=== PATIENT | male | born 1945 | race Caucasian/White ===

== ENCOUNTER → 2017-10-21 | Day surgery (SDC) | payer OTHER, MEDICARE ==
[~2017-10-21] VITALS: Ht 177.8 cm; Wt 72.6 kg
[~2017-10-21] MED LIST: ATORVASTATIN CA20 M1 PO; CILOSTAZOL100 M1 PO; GARLIC OIL1000 M1 PO; MAGNESIUM250 M2 PO; METOPROLOL SUCC25 M1 PO; VITAMIN C500 M6 PO; VITAMIN D400 UNI2 PO
--- NOTE | 2017-10-21 08:34 | Operative Report ---
Operative/Inv Procedure Report Surgery Date: 10/21/17 Name of Procedure: Cataract extraction lens implantation left eye Pre-Operative Diagnosis: Age-related cataract left eye 20/30 vision 20/50 glare vision Post-Operative Diagnosis: Same Estimated Blood Loss: none Surgeon/Swimming Pool Maintenance: Alex REYES,Adilson Martinez Anesthesia: local monitored anesthesi Complications: None Operative/Procedure Note Note: The patient was brought to the operating room standard monitoring equipment was attached the patient was prepped and draped in the usual fashion for intraocular surgery. A lid speculum was placed to retract the lids. The case was begun by making a temporal incision with a 2.4 mm keratome. The eye was stabilized with a Cash ring during this incision. 1 mL of non-preserved lidocaine was introduced into the anterior chamber to provide anesthesia. The anterior chamber was then filled and deepened with viscoelastic. A curvilinear capsulorrhexis was achieved using a 30-gauge needle and is a cystotome and capsulorrhexis was finished using a Utrata forceps. A second or paracentesis incision was made temporally with a 1 mm MVR blade. The lens was then hydrodissected with balanced salt solution and found to be rotatable. The lens was emulsified using phacoemulsification and a modified four-quadrant cracking technique. The residual cortical material was removed using automated irrigation and aspiration and as much of the anterior capsular rim was cleaned as well as possible. The posterior capsule was cleaned first with the automated machine on a low setting and then manually with a Osbaldo squeegee. The capsular bag was deepened with viscoelastic. The lens a Technis 1 19.5 Diopter placed into the bag under direct visualization and rotated so that the haptics were at 12 and 6:00. Viscoelastic was then removed from the eye by flushing it out and then by automated irrigation and aspiration. The eye was pressurized to a normal tone. 1/10 of a cc of vancomycin solution was introduced into the anterior chamber to provide antibiotic prophylaxis. The wounds were sealed by hydrating the stroma adjacent to them and the eye was left at a proper tone after the wounds were checked and found not to be leaking. The lid speculum was removed from the orbit. Antibiotic and steroid drops were placed on the eye and then the eye was shielded. Monitoring equipment was removed from the patient and the patient was removed from the operative suite to the holding area. The patient tolerated the procedure well and will be seen in the office tomorrow.
== END ==
LOC: STS 01:20
DX: H25.9 Unspecified age-related cataract (principal); I25.10 Atherosclerotic heart disease of native coronary artery without angina pectoris; I71.4 Abdominal aortic aneurysm, without rupture; I25.2 Old myocardial infarction; Z79.82 Long term (current) use of aspirin
CPT/HCPCS: J2250; V2632

== ENCOUNTER 2017-11-17 01:11 | Inpatient (IN) | payer OTHER, MEDICARE ==
[~2017-11-17] VITALS: Ht 175.3 cm; Wt 77.7 kg
--- NOTE | 2017-11-17 10:07 | Operative Report ---
Operative/Inv Procedure Report Surgery Date: 11/17/17 Name of Procedure: Percurtaneous EVAR (23 mm) [place] devide, bilateral ultrasound guidance for vascular access, bilateral closure device, aortography for placement of endovascular AAA device with 2 docking limbs, bilateral nonselective aortic catheterization Pre-Operative Diagnosis: 5.5 cm AAA Post-Operative Diagnosis: same Estimated Blood Loss: less than 50ml Surgeon/Wool Grower: Mati Javed MD Anesthesia: general endotracheal tube Complications: None Condition: Stable to PACU Operative Indication: This is a 71-year-old male with a history of a 5.5 cm infrarenal aortic aneurysm. This has been followed conservatively has increased in size recently. Risks benefits and alternatives explained to patient including limb loss, arterial injury, renal failure, aortic rupture and . He decide to proceed with intervention. Operative/Procedure Note Note: Patient was transported to the operating room and laid supine on the table. Adequate anesthesia, IV lines, A-line, a timeout was held in accordance with [facility] policy. Please note a second attending surgeon was necessary due to complexity of this case and lack of a surgical elastic knitter or PA for assistance. The bilateral groins were selected for access. Using ultrasound guidance bilateral simultaneous common femoral punctures ensued. Artery was noted to be patent. A micropuncture wire and catheter were used for access and bilateral 8 [place] sheaths were placed. Four Proglide sutures were placed in the area for hemostasis at the conclusion of the case. The patient was given 5000 units of heparin and aortography was performed. This demonstrates the known aneurysm which is 5.5 cm. The renal arteries are patent. The internal iliac arteries are patent and the external iliac arteries are patent but not well-opacified due to the sheath placement. An 16 [place] sheath was placed on the right and a 12 [place] sheath placed on the left. A pigtail catheter was then used to perform aortography. This was used to maru the level of the renal arteries. A [place] C3 endovascular stent graft 23 x 12 x 12 cm is then placed over a stiff wire into the area of the infrarenal aorta. The contralateral gate was cannulated. A 12 x 10 cm iliac extension limb was then placed on the left. Aortography after placement of this limb demonstrated a type IB endoleak. Therefore a 12 x 7 cm graft was extended on the left side. Completion aortography demonstrates in-line flow through the segment and patent bilateral renal and internal iliac arteries. There was no type I to or 3 endoleak noted. The previous endoleak was eradicated. The catheter sheath and wire systems with then removed. The provides were secured and placed appropriately. Hemostasis was achieved with the above device and 5 minutes of manual compression. Patient tolerated the procedure well was transported to the recovery area stable extubated awake and alert. CC: Russell Whyte MD
--- NOTE | 2017-11-17 10:36 | Admission Core Measures ---
Acute Coronary Syndrome (CM) ACS Core Measures Acute Coronary Syndrome Diagnosis No Congestive Heart Failure (NEW) CHF Core Measures Congestive Heart Failure Diagnosis No Cerebrovascular Accident (NEW) CVA Core Measures CVA/TIA Diagnosis No Venous Thromboembolism VTE Core Poppy (View Protocol) VTE Risk Factors Surgery No Mechanical VTE Prophylaxis d/t N/A MechProphylax Ordered No VTE Pharm Prophylaxis d/t Surgical Contraindication Problem List As ranked by this Provider includes Assessment & Plan 1. H/O endovascular stent graft for abdominal aortic aneurysm 2. AAA (abdominal aortic aneurysm) HOME MEDS Home Med List Ascorbate Calcium (Vitamin C) 500 MG TABLET 1 TAB PO DAILY SUPPLEMENT ( Reported) Atorvastatin Calcium 20 MG TABLET 1 TAB PO DAILY CHOLESTEROL (Reported) Cholecalciferol (Vitamin D3) (Vitamin D) 400 UNIT TABLET 1 TAB PO DAILY SUPPLEMENT (Reported) Cilostazol 100 MG TABLET 1 TAB PO BID CIRCULATION (Reported) Garlic (Garlic Oil) 1,000 MG CAPSULE 1 CAP PO PRN SUPPLEMENT (Reported) Magnesium Oxide (Magnesium) 250 MG TABLET 1 TAB PO DAILY SUPPLEMENT (Reported ) Metoprolol Succinate 25 MG TAB 1 TAB PO DAILY HEART/BP (Reported)
--- NOTE | 2017-11-17 11:41 | RADIOLOGY REPORT ---
EXAMINATION: CR ABDOMEN/INTRAOPERATIVE FLUOROSCOPY CLINICAL INDICATION: Abdominal aortic aneurysm repair. COMPARISON: CT angiogram dated 10/03/2017. TECHNIQUE/FINDINGS: Fluoroscopic equipment was dedicated to the operating room for the performance of an intraoperative procedure. Several (7) spot films and 7 cine fluoroscopy runs were acquired and are archived in PACS. Please refer to operative notes for procedural detail. FLUOROSCOPY TIME: 9 minutes 49 seconds. IMPRESSION: Administrative dictation for intraoperative fluoroscopy and image archiving in PACS. Please refer to operative notes for details.
[2017-11-17 12:29] VITALS: BP 116/76
--- NOTE | 2017-11-17 13:01 | PN- Vascular Surgery ---
Subjective Subjective: POST-OP NOTE No complaints. Eager to eat food. No nausea. Lied flat for 4 hours. On bedrest until the morning, which was reiterated to him. He denies pain. No dizziness. No shortness of breath. No chest pains. Due to void this afternoon. He anticipates discharge to home tomorrow. Objective Vital Signs and I&Os Vital Signs Date Time Temp Pulse Resp B/P B/P Pulse O2 O2 Flow FiO2 Mean Ox Delivery Rate 11/17 1229 98.4 86 18 116/76 93 Room Air Room Air Intake & Output 11/17 1600 11/17 0800 11/17 0000 11/16 1600 11/16 0800 11/16 0000 Intake Total Output Total Balance Patient 171 lb Weight Weight Bed scale Measurement Method Physical Exam: General - alert & oriented x 3. comfortable. no acute distress. Lungs - clear bilaterally. no w/r/r. Cardiac - s1s2. reg. Abdomen - soft. nontender. Extremities - warm bilaterally. groin dressings c/d/i. no hematomas. feet warm. dopplerable PT signals bilaterally. nvi. Current Medications: Current Medications Sig/Debi Start time Last Medication Dose Route Stop Time Status Admin Acetaminophen 1,000 MG Q6H 11/17 1300 AC IV Atorvastatin Calcium 20 MG 1700 11/18 1700 DC PO Atorvastatin Calcium 20 MG 1700 11/18 1700 AC PO Cefazolin Sodium 2,000 MG IQ8 11/17 1600 UNVr IV 11/18 0001 Cilostazol 100 MG BID 11/18 0900 AC PO Cilostazol 100 MG BID 11/17 2100 DC PO Metoprolol Succinate 25 MG DAILY 11/18 0900 DC PO Metoprolol Succinate 25 MG DAILY 11/18 0900 AC PO Ondansetron HCl 4 MG Q6P PRN 11/17 1230 AC IV Oxycodone HCl 5 MG Q6P PRN 11/17 1030 AC PO Oxycodone HCl 10 MG Q6P PRN 11/17 1030 AC PO Sodium Chloride 1,000 ML Q13H 11/17 1230 AC IV Assessment/Plan Assessment/Plan This 71 year old white male with hx cad / mi s/p ptca, htn, hx dvt, hx L popliteal artery aneurysm, pvd, hyperlipidemia, is POD#0 s/p percurtaneous EVAR (23 mm) [place] devide, bilateral ultrasound guidance for vascular access, bilateral closure device, aortography for placement of endovascular AAA device with 2 docking limbs, bilateral nonselective aortic catheterization for 5.5 cm AAA advance diet as tolerated continue iv fluids until he successfully voids ancef x 2 doses post-op pletal BID to resume in the morning completed 4 hours bedrest. to remain on bedrest until the morning home meds re-ordered, including beta cassi neurovascular checks (dopplerable PT signals d/w ) no AM labs needed likely d/c home tomorrow will d/w Problem List: 1. H/O endovascular stent graft for abdominal aortic aneurysm 2. AAA (abdominal aortic aneurysm) Core Measures Venous Thromboembolism VTE Risk Factors Surgery No Mechanical VTE Prophylaxis d/t N/A MechProphylax Ordered No VTE Pharm Prophylaxis d/t Surgical Contraindication
--- NOTE | 2017-11-17 13:12 | Patient Discharge Instructions ---
Discharge Instructions General Discharge Information You were seen/treated for: 5.5 cm AAA You had these procedures: Percurtaneous EVAR (23 mm) [place] devide, bilateral ultrasound guidance for vascular access, bilateral closure device, aortography for placement of endovascular AAA device with 2 docking limbs, bilateral nonselective aortic catheterization Watch for these problems: fever>101.3, increased pain, redness/swelling/drainage, dizziness, shortness of breath, chest pains No bath, but you may shower: Yes Other wound care: ok to remove groin dressings in 24 hours. keep incisions clean & dry. Diet Continue normal diet: Yes Recommended Diet: Regular Activity Full Activity/No Limits: No Activity Self Limited: Yes Pounds, do NOT lift more than: 10 Activity Limited to: Weight bear as tolerated Other activity limits: no heavy lifting. no strenuous activity. Acute Coronary Syndrome Inclusion Criteria At DC or during hospital stay patient has or had the following: ACS DIAGNOSIS No Discharge Core Measures Meds if any: Prescribed or Continued at Discharge Meds if any: NOT Prescribed or Continued at Discharge Congestive Heart Failure Inclusion Criteria At DC or during hospital stay patient has or had the following: CHF DIAGNOSIS No Discharge Core Measures Meds if any: Prescribed or Continued at Discharge Meds if any: NOT Prescribed or Continued at Discharge Cerebrovascular accident Inclusion Criteria At DC or during hospital stay patient has or had the following: CVA/TIA Diagnosis No Discharge Core Measures Meds if any: Prescribed or Continued at Discharge Meds if any: NOT Prescribed or Continued at Discharge Venous thromboembolism Inclusion Criteria VTE Diagnosis No VTE Type NONE VTE Confirmed by (Test) NONE Discharge Core Measures - Per Current guidelines, there needs to be overlap - treatment for the first 5 days of Warfarin therapy. - If discharged on Warfarin prior to 5 days of - overlap therapy, the patient will need to be - assessed for post discharge needs including - *Post discharge parental anticoagulation - *Warfarin and/or parental anticoagulation education - *Follow up date to check INR post discharge At least 5 days overlap therapy as Inpatient No Meds if any: Prescribed or Continued at Discharge Note: Overlap Therapy is Warfarin and Anticoagulant Meds if any: NOT Prescribed or Continued at Discharge
[2017-11-17] MEDS ORDERED: PERCOCET 5-3251 EACH PO (13:13)
--- NOTE | 2017-11-17 13:19 | Surg Short-stay <48hrs Dis Sum ---
Visit Information Visit Dates Admission Date: 11/17/17 Discharge Date: 11/18/17 Surgical Short Stay DC Summary Admission Diagnosis: 5.5 cm AAA Final Diagnosis: same as above, s/p Percurtaneous EVAR (23 mm) [place] devide, bilateral ultrasound guidance for vascular access, bilateral closure device, aortography for placement of endovascular AAA device with 2 docking limbs, bilateral nonselective aortic catheterization Procedure(s): Percurtaneous EVAR (23 mm) [place] devide, bilateral ultrasound guidance for vascular access, bilateral closure device, aortography for placement of endovascular AAA device with 2 docking limbs, bilateral nonselective aortic catheterization Summary/Significant Findings: Electively scheduled Percurtaneous EVAR (23 mm) [place] devide, bilateral ultrasound guidance for vascular access, bilateral closure device, aortography for placement of endovascular AAA device with 2 docking limbs, bilateral nonselective aortic catheterization by on 11/17/17 for pre-operative diagnosis of 5.5 cm AAA. Post-operatively he remained flat for 4 hours, then bedrest until POD#1 morning. His home medication Pletal BID was restarted on post-op day#1. Standard kelsie-operative course, via [facility]. The patient has warm feet, with dopplerable PT signals bilaterally. He will be discharged to home post-op day#1. Condition at Discharge: stable Discharge Disposition: home or self care Discharge instructions provided to patient/family: Yes Post discharge follow-up plan: 2 week follow up with Copies to: Chela REYES,Calin David
[2017-11-17 14:26] VITALS: BP 124/70
[2017-11-17 18:00] VITALS: BP 122/80
[2017-11-17 21:57] VITALS: BP 96/60
[2017-11-17 22:51] VITALS: BP 102/60
[2017-11-18 02:23] VITALS: BP 110/82
[2017-11-18 06:02] VITALS: BP 106/80
--- NOTE | 2017-11-18 07:22 | PN- Vascular Surgery ---
Subjective Subjective: No complaints. Tolerating diet. Bedrest until this morning. No dizziness. No shortness of breath. No chest pains. Voiding well. Eager to go home today. Objective Vital Signs and I&Os Vital Signs Date Time Temp Pulse Resp B/P B/P Pulse O2 O2 Flow FiO2 Mean Ox Delivery Rate 11/18 0602 98.7 76 20 106/80 95 Room Air 11/18 0223 97.5 70 20 110/82 97 Room Air 11/17 2251 102/60 11/17 2157 98.1 82 18 96/60 95 11/17 1800 99.4 80 18 122/80 95 Room Air 11/17 1426 98.6 95 20 124/70 95 Room Air 11/17 1229 98.4 86 18 116/76 93 Room Air Room Air Intake & Output 11/18 0800 11/18 0000 11/17 1600 11/17 0800 11/17 0000 11/16 1600 Intake Total 1010 1400 705 Output Total 400 600 Balance 610 800 705 Intake, IV 650 600 225 Intake, Oral 360 800 480 Output, Urine 400 600 Patient 171 lb Weight Weight Bed scale Measurement Method Physical Exam: General - alert & oriented x 3. comfortable. no acute distress. Lungs - clear bilaterally. no w/r/r. Cardiac - s1s2. reg. Abdomen - soft. nontender. Extremities - warm bilaterally. left groin dressing stained. no hematomas. feet warm. dopplerable PT signals bilaterally. nvi. Current Medications: Current Medications Sig/Debi Start time Last Medication Dose Route Stop Time Status Admin Acetaminophen 1,000 MG Q6H 11/17 2200 AC 11/18 IV 0519 Acetaminophen 1,000 MG Q6H 11/17 1300 DC 11/17 IV 2146 Atorvastatin Calcium 20 MG 1700 11/18 1700 DC PO Atorvastatin Calcium 20 MG 1700 11/18 1700 AC PO Cefazolin Sodium 2,000 MG IQ8 11/17 1600 CAN IV 11/18 0001 Cefazolin Sodium 2 GM IQ8 11/17 1600 DC 11/18 N/A 1 UNIT IV 11/18 0029 0009 Cilostazol 100 MG BID 11/18 0900 AC PO Cilostazol 100 MG BID 11/17 2100 DC PO Docusate Sodium 100 MG BID 11/17 2100 AC PO Magnesium Oxide 400 MG DAILY 11/18 0900 AC PO Metoprolol Succinate 25 MG DAILY 11/18 0900 DC PO Metoprolol Succinate 25 MG DAILY 11/18 0900 AC PO Morphine Sulfate 4 MG .STK-MED ONE 11/17 1024 DC IM 11/17 1025 Ondansetron HCl 4 MG Q6P PRN 11/17 1230 AC IV Oxycodone HCl 5 MG Q6P PRN 11/17 1030 AC PO Oxycodone HCl 10 MG Q6P PRN 11/17 1030 AC 11/18 PO 0519 Sodium Chloride 1,000 ML Q13H 11/17 1230 DC 11/18 IV 0012 Assessment/Plan Assessment/Plan This 71 year old white male with hx cad / mi s/p ptca, htn, hx dvt, hx L popliteal artery aneurysm, pvd, hyperlipidemia, is POD#1 s/p percurtaneous EVAR (23 mm) [place] devide, bilateral ultrasound guidance for vascular access, bilateral closure device, aortography for placement of endovascular AAA device with 2 docking limbs, bilateral nonselective aortic catheterization for 5.5 cm AAA tolerating diet. d/c iv fluids ancef x 2 doses post-op complete pletal BID to resume this morning oob today home meds ordered, including beta cassi d/c home today will d/w Core Measures Venous Thromboembolism VTE Risk Factors Surgery No Mechanical VTE Prophylaxis d/t N/A MechProphylax Ordered No VTE Pharm Prophylaxis d/t Surgical Contraindication
[2017-11-18 08:49] VITALS: BP 106/80
== END 2017-11-18 10:45 | DRG 269 ==
LOC: SDA 01:11 → EDBEDREQ 10:03 → ENRESERV 10:24 → ENTRNSPT 11:33 → EDTRNSPTSTS 11:56 → EDTRNSPT 11:56 → 2NA 12:11 → CMPTRNSPT 12:19 → ENPENDDIS 11-18 07:48 → 2NA 11-18 10:45
PROC: 04V03DZ Restriction of Abdominal Aorta with Intraluminal Device, Percutaneous Approach (ICD-10-PCS; principal; 2017-11-17)
PROC: B4101ZZ Fluoroscopy of Abdominal Aorta using Low Osmolar Contrast (ICD-10-PCS; 2017-11-17)
DX: I71.4 Abdominal aortic aneurysm, without rupture (principal); E78.5 Hyperlipidemia, unspecified; I10 Essential (primary) hypertension; I25.10 Atherosclerotic heart disease of native coronary artery without angina pectoris; Z98.61 Coronary angioplasty status; I25.2 Old myocardial infarction; K44.9 Diaphragmatic hernia without obstruction or gangrene; Z86.718 Personal history of other venous thrombosis and embolism; I72.4 Aneurysm of artery of lower extremity
CPT/HCPCS: 2NAP; 36415; 74018; C1725; C1760; C9399; J0131; J0690; J1644; J2405; J2720; Q9967